=== PATIENT | female | born 1980 | race Caucasian/White ===

== ENCOUNTER → 2017-01-05 | Emergency (ER) | payer OTHER ==
[~2017-01-05] MED LIST: LIDOCAINE 1% 10 ML VIAL INJ ONE; ONDANSETRON ODT 8 MG TAB SL PRN; cefTRIAXone SODIUM 1 GM VIAL IM ONE; methylPREDNISolone SODIUM SUC 125 MG/2 ML VIAL IM ONE
--- NOTE | 2017-01-05 10:49 | ED.PDOC ---
History of Present Illness - General Chief Complaint: Headache Stated Complaint: Right sided headache & earache Time Seen by Provider: 01/05/17 10:33 Source: patient, RN notes reviewed, Vital Signs reviewed Exam Limitations: no limitations - History of Present Illness Initial Comments: Patient reports this morning at 2am she developed a right sided [place]IL[place] with ear pain , dizziness and nausea. She had a similar, brief episode 5 days ago that resolved on its own. Denies any recent URI symptoms. No numbness, weakness, tingling. No visual or speech changes. Timing/Duration: 24 hours Quality: moderate, constant, pressure Head Injury Location: other - Whole right side of head and jaw Recent Head Trauma: no recent headache/trauma Improving Factors: rest Worsening Factors: movement Associated Symptoms: nausea/vomiting, other - Dizziness/vertigo Allergies/Adverse Reactions: Allergies NO KNOWN ALLERGY Allergy (Unverified 06/13/15 22:17) Home Medications: Ambulatory Orders Fluoxetine HCl [Prozac] 60 mg PO DAILY 12/22/13 Phenytoin Sodium Cap [Dilantin Cap] 100 mg PO TID 12/22/13 Ondansetron [Zofran Odt] 4 mg PO Q4HR PRN #20 tab 01/05/17 Review of Systems - Review of Systems Constitutional: Denies: chills, diaphoresis, fever, malaise, weakness EENTM: States: see HPI, ear pain. Denies: eye pain, blurred vision, double vision, ear discharge, nose pain, nose congestion, throat pain, throat swelling , mouth pain, mouth swelling Respiratory: States: no symptoms reported. Denies: cough, short of breath Cardiology: States: no symptoms reported. Denies: chest pain, palpitations, syncope Gastrointestinal/Abdominal: States: see HPI, nausea. Denies: abdominal pain, diarrhea, vomiting Musculoskeletal: States: no symptoms reported. Denies: back pain, muscle pain, muscle stiffness Skin: States: no symptoms reported Neurological: States: headache. Denies: numbness, paresthesia, pre-existing deficit, seizure, tingling, tremors, weakness Endocrine: States: no symptoms reported Hematologic/Lymphatic: States: no symptoms reported Past Medical History (General) - Patient Medical History Hx Seizures: Yes Hx Stroke: No Hx Dementia: No Hx Asthma: Yes Hx of COPD: No Hx Cardiac Disorders: No Hx Congestive Heart Failure: No Hx Pacemaker: No Hx Hypertension: No Hx Thyroid Disease: No Hx Diabetes: No Hx Gastroesophageal Reflux: No Hx Renal Disease: No Hx Cancer: No Hx of HIV: No Hx Hepatitis C: No Hx MRSA: Yes MRSA Source:: Wound - Vaccination History Hx Tetanus, Diphtheria Vaccination: No Hx Influenza Vaccination: No Hx Pneumococcal Vaccination: No - Social History Hx Tobacco Use: Yes Hx Chewing Tobacco Use: No Hx Alcohol Use: Yes Hx Substance Use: No Hx Substance Use Treatment: No Hx Depression: Yes Hx Physical Abuse: No Hx Emotional Abuse: No Hx Suspected Abuse: No - Female History Hx Last Menstrual Period: 05/26/14 Patient : No Family Medical History - Family History Mother Family History: Unknown Physical Exam - Physical Exam General Appearance: Alert, No apparent distress, Ill Appearing, Unkempt, Well Developed, Well Hydrated, Well Nourished Eyes, Ears, Nose, Throat Exam: PERRL/EOMI, pharynx normal, TM abnormal (R) - TM is erythematous and bulging Neck: non-tender, full range of motion, supple, normal inspection, trachea midline Cardiovascular/Chest: regular rate, rhythm, no edema, no gallop, no JVD, no murmur Respiratory: lungs clear, normal breath sounds, no respiratory distress, no accessory muscle use Extremity: normal range of motion, non-tender, normal inspection, no pedal edema Mental Status: alert, 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 Discussed ear infection, how painful they can be, how they cause vertigo and the importance of gargling warm salt water and taking a good decongestant. Explained that the shot of Rochephin should cover the infection but need to get the ear draining with above measures. Also discussed the possibility of an ear drum rupture and the importance of following up for recheck if that dose occur. Departure - Departure Clinical Impression: Otitis media Time of Disposition: 11:37 Disposition: Discharge to Home or Self Care Condition: Good Departure Forms: ED Discharge - Pt. Copy, Patient Portal Self Enrollment Instructions: Middle Ear Infection Diet: resume usual diet Activity: increase activity as tolerated Prescriptions: Ondansetron [Zofran Odt] 4 mg PO Q4HR PRN #20 tab PRN Reason: Nausea/Vomiting Home Medications: Ambulatory Orders Fluoxetine HCl [Prozac] 60 mg PO DAILY 12/22/13 Phenytoin Sodium Cap [Dilantin Cap] 100 mg PO TID 12/22/13 Ondansetron [Zofran Odt] 4 mg PO Q4HR PRN #20 tab 01/05/17 Additional Instructions: Gargle warm salt water every 2 hours OTC Robitussin or Mucinex as directed.
[2017-01-05 11:48] VITALS: BP 142/87; TEMP 99; O2SAT 95
== END | disposition home or self-care (01) ==
LOC: ER 10:29
DX: H66.90 Otitis media, unspecified, unspecified ear (principal); J45.909 Unspecified asthma, uncomplicated; Z87.891 Personal history of nicotine dependence; Z86.14 Personal history of Methicillin resistant Staphylococcus aureus infection

== ENCOUNTER 2017-01-30 11:23 | Emergency (ER) | payer OTHER ==
--- NOTE | 2017-01-30 12:11 | ED.PDOC ---
History of Present Illness - General Chief Complaint: General Stated Complaint: (R) ear discomfort, fever, headache Time Seen by Provider: 01/30/17 12:04 Source: patient Exam Limitations: no limitations - History of Present Illness Initial Comments: She stated she started having cough non productive and nasal congestion for 6 days,her daughter got ill first,no foreign travel no fever no chills.With dull frontal headache. Timing/Duration: other - 6 days Improving Factors: nothing Worsening Factors: nothing Associated Symptoms: cough, headaches, loss of appetite Allergies/Adverse Reactions: Allergies Coconut Fatty Acids Allergy (Verified 01/30/17 11:39) Anaphylaxis Causes throat and tongue to swell Home Medications: Ambulatory Orders Fluoxetine HCl [Prozac] 60 mg PO DAILY 12/22/13 Phenytoin Sodium Cap [Dilantin Cap] 100 mg PO TID 12/22/13 Albuterol Inhaler [Ventolin Hfa Inhaler] 108 mcg IN Q4HR PRN #1 inh 01/30/17 Amoxicillin [Amoxil] 1,000 mg PO BID #40 cap 01/30/17 Benzonatate Perles [Tessalon Perles] 200 mg PO BID #30 cap 01/30/17 predniSONE [Prednisone] 10 mg PO BID #14 tab 01/30/17 Review of Systems - Review of Systems Constitutional: States: no symptoms reported EENTM: States: nose congestion Respiratory: States: cough Cardiology: States: no symptoms reported Gastrointestinal/Abdominal: States: no symptoms reported Genitourinary: States: no symptoms reported Musculoskeletal: States: no symptoms reported Skin: States: no symptoms reported Neurological: States: seizure - non compliant with medications Endocrine: States: no symptoms reported Hematologic/Lymphatic: States: no symptoms reported Past Medical History (General) - Patient Medical History Hx Seizures: Yes Hx Stroke: No Hx Dementia: No Hx Asthma: Yes Hx of COPD: No Hx Cardiac Disorders: No Hx Congestive Heart Failure: No Hx Pacemaker: No Hx Hypertension: No Hx Thyroid Disease: No Hx Diabetes: No Hx Gastroesophageal Reflux: No Hx Renal Disease: No Hx Cancer: No Hx of HIV: No Hx Hepatitis C: No Hx MRSA: Yes MRSA Source:: Wound - Vaccination History Hx Tetanus, Diphtheria Vaccination: No Hx Influenza Vaccination: No Hx Pneumococcal Vaccination: No - Social History Hx Tobacco Use: Yes Hx Chewing Tobacco Use: No Hx Alcohol Use: Yes Hx Substance Use: No Hx Substance Use Treatment: No Hx Depression: Yes Hx Physical Abuse: No Hx Emotional Abuse: No Hx Suspected Abuse: No - Female History Patient is a Female of Child Bearing Age (10 -59 yrs old): Yes Hx Last Menstrual Period: 05/26/14 Patient : No Family Medical History - Family History Mother Family History: Unknown Living Status: Hx Family Hypertension: Yes Hx Family Stroke: Yes Hx Family Diabetes: Yes Hx Family Cancer: Yes - lung,breast-grandma Physical Exam - Physical Exam General Appearance: Alert, Comfortable, No apparent distress Eye Exam: bilateral normal Ears, Nose, Throat: hearing grossly normal, normal ENT inspection, normal pharynx, nasal congestion Neck: non-tender, full range of motion, supple Respiratory: chest non-tender, lungs clear, normal breath sounds, no respiratory distress Cardiovascular/Chest: normal peripheral pulses, regular rate, rhythm, no edema, no gallop, no JVD, no murmur Gastrointestinal/Abdominal: normal bowel sounds, non tender, soft, no organomegaly Back Exam: normal inspection, no CVA tenderness, no vertebral tenderness Extremity: normal range of motion, non-tender, normal inspection Neurologic: no motor/sensory deficits, alert, normal mood/affect, oriented x 3 Skin Exam: normal color, warm/dry Progress - EKG/XRAY/CT XRAY: chest - no acute findings Departure - Departure Clinical Impression: Reactive airway disease that is not asthma Acute sinusitis, unspecified Qualifiers: Sinusitis location: unspecified location Recurrence: not specified Qualifier Code: (J01.90) Acute sinusitis, unspecified Time of Disposition: 13:24 Disposition: Discharge to Home or Self Care Condition: Good Departure Forms: ED Discharge - Pt. Copy, Patient Portal Self Enrollment Instructions: How to Quit Smoking, Reasons to Quit Smoking, All Forms of Smoking Are Bad for You, Tips to Help You Stop Smoking Prescriptions: Albuterol Inhaler [Ventolin Hfa Inhaler] 108 mcg IN Q4HR PRN #1 inh PRN Reason: Cough Amoxicillin [Amoxil] 1,000 mg PO BID #40 cap predniSONE [Prednisone] 10 mg PO BID #14 tab Benzonatate Perles [Tessalon Perles] 200 mg PO BID #30 cap Home Medications: Ambulatory Orders Fluoxetine HCl [Prozac] 60 mg PO DAILY 12/22/13 Phenytoin Sodium Cap [Dilantin Cap] 100 mg PO TID 12/22/13 Albuterol Inhaler [Ventolin Hfa Inhaler] 108 mcg IN Q4HR PRN #1 inh 01/30/17 Amoxicillin [Amoxil] 1,000 mg PO BID #40 cap 01/30/17 Benzonatate Perles [Tessalon Perles] 200 mg PO BID #30 cap 01/30/17 predniSONE [Prednisone] 10 mg PO BID #14 tab 01/30/17 Additional Instructions: NEED TO FOOLLOW UP WITH PRIMARY MD FOR REFILL OF ANTEPILEPSY MEDICATIONS
--- NOTE | 2017-01-30 12:59 | RAD ---
EXAM DESCRIPTION: Chest,1 View CLINICAL HISTORY: cough COMPARISON: December 22, 2013 IMPRESSION: Single AP portable upright view of the chest shows cardiac silhouette and pulmonary vasculature to be within normal limits. Lungs are normally aerated and clear. No obvious pleural effusion or pneumothorax is seen. Electronically signed by: Chas Silva MD 01/30/2017 12:59 PM [employer]
[2017-01-30 13:44] VITALS: BP 148/80; TEMP 98; O2SAT 95
== END 2017-01-30 13:30 | disposition home or self-care (01) ==
LOC: ER 11:23
DX: J01.90 Acute sinusitis, unspecified (principal); J98.9 Respiratory disorder, unspecified; Z79.899 Other long term (current) drug therapy; Z91.018 Allergy to other foods

== ENCOUNTER 2018-01-01 06:05 | Emergency (ER) | payer SELFPAY ==
[2018-01-01 06:18] VITALS: BP 119/88; TEMP 100.9; O2SAT 96
[2018-01-01] MEDS ORDERED: valACYclovir 500 MG TAB PO ONE (06:27)
[2018-01-01] MEDS ORDERED: SULFA/TRIMETH 800/160 (DS) TAB 1 EA TAB PO ONE (06:27)
--- NOTE | 2018-01-01 06:30 | ED.PDOC ---
History of Present Illness - General Chief Complaint: Fever Stated Complaint: fever, fever blisters Time Seen by Provider: 01/01/18 06:22 Exam Limitations: no limitations - History of Present Illness Initial Comments: the patient is a 37-year-old female presenting to the emergency room secondary to intermittent fevers for the last couple of weeks as well as a cough for the last few days. The patient has had a significant fever blister develop over the last 24-48 hrs. with significant surrounding erythema and also what is likely reactive lymphadenopathy below her right jawline. There is the possibility this may be a swollen submandibular gland. no parotid gland swelling. Timing/Duration: unsure Severity: moderate Improving Factors: nothing Worsening Factors: nothing Associated Symptoms: cough, fever/chills, loss of appetite, malaise Allergies/Adverse Reactions: Allergies Coconut Fatty Acids Allergy (Verified 01/30/17 11:39) Anaphylaxis Causes throat and tongue to swell Home Medications: Ambulatory Orders Fluoxetine HCl [Prozac] 60 mg PO DAILY 12/22/13 Phenytoin Sodium Cap Extended [Dilantin Cap] 100 mg PO TID 12/22/13 Albuterol Inhaler [Ventolin Hfa Inhaler] 108 mcg IN Q4HR PRN #1 inh 01/30/17 Amoxicillin [Amoxil] 1,000 mg PO BID #40 cap 01/30/17 Benzonatate Perles [Tessalon Perles] 200 mg PO BID #30 cap 01/30/17 predniSONE [Prednisone] 10 mg PO BID #14 tab 01/30/17 Amoxicillin & Pot Clavulanate [Augmentin Tab] 875 mg PO BID #20 tab 01/01/18 Docosanol [Abreva] 10 % TOP TID #1 tube 01/01/18 Valacyclovir HCl [Valtrex] 2 gm PO BID #6 tab 01/01/18 Review of Systems - Review of Systems Constitutional: States: fever, malaise EENTM: States: see HPI, nose congestion Respiratory: States: cough Cardiology: States: no symptoms reported Gastrointestinal/Abdominal: States: no symptoms reported Genitourinary: States: no symptoms reported Musculoskeletal: States: no symptoms reported - with the exception of generalized body aches Skin: States: no symptoms reported Neurological: States: no symptoms reported, headache Endocrine: States: no symptoms reported All other Systems: No Change from Baseline Past Medical History (General) - Patient Medical History Hx Seizures: Yes Hx Stroke: No Hx Dementia: No Hx Asthma: Yes Hx of COPD: No Hx Cardiac Disorders: No Hx Congestive Heart Failure: No Hx Pacemaker: No Hx Hypertension: No Hx Thyroid Disease: No Hx Diabetes: No Hx Gastroesophageal Reflux: No Hx Renal Disease: No Hx Cancer: No Hx of HIV: No Hx Hepatitis C: No Hx MRSA: Yes MRSA Source:: Wound - Vaccination History Hx Tetanus, Diphtheria Vaccination: No Hx Influenza Vaccination: No Hx Pneumococcal Vaccination: No - Social History Hx Tobacco Use: Yes Hx Chewing Tobacco Use: No Hx Alcohol Use: Yes Hx Substance Use: No Hx Substance Use Treatment: No Hx Depression: Yes Hx Physical Abuse: No Hx Emotional Abuse: No Hx Suspected Abuse: No - Female History Hx Last Menstrual Period: 05/26/14 Patient : No Family Medical History - Family History Mother Family History: Unknown Living Status: Hx Family Hypertension: Yes Hx Family Stroke: Yes Hx Family Diabetes: Yes Hx Family Cancer: Yes - lung,breast-grandma Physical Exam - Physical Exam General Appearance: Alert, No apparent distress Eye Exam: bilateral normal Ears, Nose, Throat: hearing grossly normal, nasal congestion, pharyngeal erythema, other - fever blister to her upper right lip with significant surrounding erythema Neck: other - significant lymphadenopathy versus submandibular swelling under the right jaw line. Tender to palpation. Respiratory: lungs clear, normal breath sounds, no respiratory distress, no accessory muscle use Cardiovascular/Chest: normal peripheral pulses, no edema Peripheral Pulses: radial,right: 2+, radial,left: 2+, dorsalis pedis,right: 2+, dorsalis pedis,left: 2+ Gastrointestinal/Abdominal: normal bowel sounds, non tender, soft Rectal Exam: deferred Back Exam: normal inspection, no CVA tenderness Extremity: normal range of motion, non-tender, normal inspection, no pedal edema , normal capillary refill Neurologic: mailing jogger II-XII nml as tested, alert, normal mood/affect, oriented x 3 Skin Exam: normal color - ee history of present illness Comments: Vital Signs - 24 hr 01/01/18 06:10 Temperature 100.9 F H Pulse Rate [ 111 H monitor] Respiratory 16 Rate Blood Pressure 119/88 [Left Arm] O2 Sat by Pulse 96 Oximetry Progress - Progress Progress: 01/01/18 06:31 the patient is a 37-year-old with an obvious oral HSV infection currently flaring. She will be placed on Valtrex. Additionally the patient is going to be covered for the possibility of overlying bacterial infection, possibly of the submandibular gland, with Augmentin twice daily for 7 days. first doses of each are given here tonight. She needs to follow up with her primary care doctor in 3 days for reevaluation. She obviously needs to return here for any significant worsening. She needs to really push her hydration status. sucking on hard candy and chewing on things like beef jerky can help stimulate saliva production encase this is a submandibular gland infection. She needs to use Motrin and Tylenol as needed to keep her fever control as this may help reduce her symptoms from the HSV very significantly. She can use topical Abreva if she wishes on the fever blisters as well. 01/01/18 06:36 Departure - Departure Clinical Impression: Recurrent herpes labialis, Sialadenitis Upper respiratory infection Qualifiers: URI type: unspecified URI Qualified Code(s): J06.9 - Acute upper respiratory infection, unspecified Disposition: Discharge to Home or Self Care Condition: Fair Departure Forms: ED Discharge - Pt. Copy, Patient Portal Self Enrollment Instructions: DI for Cold Sores Diet: regular diet Activity: increase activity as tolerated Referrals: Margarita Myers NP [Primary Care Provider] - 1-5 Days Prescriptions: Amoxicillin & Pot Clavulanate [Augmentin Tab] 875 mg PO BID #20 tab Docosanol [Abreva] 10 % TOP TID #1 tube Valacyclovir HCl [Valtrex] 2 gm PO BID #6 tab Home Medications: Ambulatory Orders Fluoxetine HCl [Prozac] 60 mg PO DAILY 12/22/13 Phenytoin Sodium Cap Extended [Dilantin Cap] 100 mg PO TID 12/22/13 Albuterol Inhaler [Ventolin Hfa Inhaler] 108 mcg IN Q4HR PRN #1 inh 01/30/17 Amoxicillin [Amoxil] 1,000 mg PO BID #40 cap 01/30/17 Benzonatate Perles [Tessalon Perles] 200 mg PO BID #30 cap 01/30/17 predniSONE [Prednisone] 10 mg PO BID #14 tab 01/30/17 Amoxicillin & Pot Clavulanate [Augmentin Tab] 875 mg PO BID #20 tab 01/01/18 Docosanol [Abreva] 10 % TOP TID #1 tube 01/01/18 Valacyclovir HCl [Valtrex] 2 gm PO BID #6 tab 01/01/18 Additional Instructions: the patient is a 37-year-old with an obvious oral HSV infection currently flaring. She will be placed on Valtrex. Additionally the patient is going to be covered for the possibility of overlying bacterial infection, possibly of the submandibular gland, with Augmentin twice daily for 7 days. first doses of each are given here tonight. She needs to follow up with her primary care doctor in 3 days for reevaluation. She obviously needs to return here for any significant worsening. She needs to really push her hydration status. sucking on hard candy and chewing on things like beef jerky can help stimulate saliva production encase this is a submandibular gland infection. She needs to use Motrin and Tylenol as needed to keep her fever control as this may help reduce her symptoms from the HSV very significantly. She can use topical Abreva if she wishes on the fever blisters as well.
== END 2018-01-01 06:51 | disposition home or self-care (01) ==
LOC: ER 06:05
DX: J06.9 Acute upper respiratory infection, unspecified (principal); K11.20 Sialoadenitis, unspecified; B00.1 Herpesviral vesicular dermatitis; Z87.891 Personal history of nicotine dependence

== ENCOUNTER 2018-05-10 09:03 | Emergency (ER) | payer SELFPAY ==
[2018-05-10 09:28] VITALS: TEMP 99.3
[2018-05-10] MEDS ORDERED: CLINDAMYCIN HCL CAP 150 MG CAP PO ONE (09:32)
[2018-05-10] MEDS ORDERED: HYDROcodone 7.5MG/APAP 325MG 1 EA TAB PO ONE (09:32)
[2018-05-10] MEDS ORDERED: PROMETHAZINE HCL 25 MG TAB PO ONE (09:32)
--- NOTE | 2018-05-10 09:38 | ED.PDOC ---
History of Present Illness - General Chief Complaint: Dental/Mouth Time Seen by Provider: 05/10/18 09:11 Source: patient Exam Limitations: no limitations - History of Present Illness Initial Comments: the patient is a 37-year-old female presenting to the emergency room secondary to pain and nodule formation to the roof of her mouth that started about 3 days ago. She reports low-grade fever at home. She has been having some difficulty eating secondary to pain there. She has had some nausea. No fever blisters or oral ulcers otherwise. She does have very poor dentition.physical exam shows a nodule on the roof of her mouth slightly left of center that has been obviously draining a small amount of pus. It is approximately the size of a nickel. Examination down the nares show no extension into the nasal channels. Timing/Duration: unsure Severity: severe Improving Factors: nothing Worsening Factors: eating Associated Symptoms: denies symptoms Allergies/Adverse Reactions: Allergies Coconut Fatty Acids Allergy (Verified 01/30/17 11:39) Anaphylaxis Causes throat and tongue to swell Home Medications: Ambulatory Orders Fluoxetine HCl [Prozac] 60 mg PO DAILY 12/22/13 Phenytoin Sodium Cap Extended [Dilantin Cap] 100 mg PO TID 12/22/13 Albuterol Inhaler [Ventolin Hfa Inhaler] 108 mcg IN Q4HR PRN #1 inh 01/30/17 Amoxicillin [Amoxil] 1,000 mg PO BID #40 cap 01/30/17 Benzonatate Perles [Tessalon Perles] 200 mg PO BID #30 cap 01/30/17 predniSONE [Prednisone] 10 mg PO BID #14 tab 01/30/17 Amoxicillin & Pot Clavulanate [Augmentin Tab] 875 mg PO BID #20 tab 01/01/18 Docosanol [Abreva] 10 % TOP TID #1 tube 01/01/18 Valacyclovir HCl [Valtrex] 2 gm PO BID #6 tab 01/01/18 Clindamycin HCl 300 mg PO Q8H #20 cap 05/10/18 Tramadol HCl 50 mg PO Q6HRS PRN #30 tab 05/10/18 Review of Systems - Review of Systems Constitutional: States: fever, malaise EENTM: States: no symptoms reported Respiratory: States: no symptoms reported Cardiology: States: no symptoms reported Gastrointestinal/Abdominal: States: nausea. Denies: constipation, diarrhea, vomiting Genitourinary: States: no symptoms reported Musculoskeletal: States: no symptoms reported Skin: States: no symptoms reported Neurological: States: headache Endocrine: States: no symptoms reported All other Systems: No Change from Baseline Past Medical History (General) - Patient Medical History Hx Seizures: Yes Hx Stroke: No Hx Dementia: No Hx Asthma: Yes Hx of COPD: No Hx Cardiac Disorders: No Hx Congestive Heart Failure: No Hx Pacemaker: No Hx Hypertension: No Hx Thyroid Disease: No Hx Diabetes: No Hx Gastroesophageal Reflux: No Hx Renal Disease: No Hx Cancer: No Hx of HIV: No Hx Hepatitis C: No Hx MRSA: Yes MRSA Source:: Wound Surgical History: other - Vaccination History Hx Tetanus, Diphtheria Vaccination: No Hx Influenza Vaccination: No Hx Pneumococcal Vaccination: No - Social History Hx Tobacco Use: Yes Hx Chewing Tobacco Use: No Hx Alcohol Use: Yes Hx Substance Use: No Hx Substance Use Treatment: No Hx Depression: Yes Hx Physical Abuse: No Hx Emotional Abuse: No Hx Suspected Abuse: No - Female History Hx Last Menstrual Period: 05/26/14 Patient : No Family Medical History - Family History Mother Family History: Unknown Living Status: Hx Family Hypertension: Yes Hx Family Stroke: Yes Hx Family Diabetes: Yes Hx Family Cancer: Yes - lung,breast-grandma Physical Exam - Physical Exam General Appearance: Alert, Anxious Eye Exam: bilateral normal Ears, Nose, Throat: hearing grossly normal, other - see history of present illness Neck: full range of motion, supple Respiratory: lungs clear, normal breath sounds, no respiratory distress, no accessory muscle use Cardiovascular/Chest: normal peripheral pulses, regular rate, rhythm, no edema Peripheral Pulses: radial,right: 2+, radial,left: 2+, dorsalis pedis,right: 2+, dorsalis pedis,left: 2+ Gastrointestinal/Abdominal: non tender, soft Rectal Exam: deferred Back Exam: normal inspection, no CVA tenderness Extremity: non-tender, no pedal edema, no calf tenderness, normal capillary refill 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 After risk and benefits were explained I&D was performed with a #11 blade scalpel making a 1 cm incision into the abscess. Proximally 1-2 cc of pus were drained. The patient tolerated this well and is actually feeling a little better after. The patient is going to be placed on clindamycin 300 mg 3 times daily for the next 7 days as empiric treatment and is going to be written for some tramadol for as needed use for the pain control. She needs to keep herself well hydrated and maintain primarily a liquid diet for the next day or 2. she needs to mouthwash with Listerine 5 or 6 times daily for the next couple of weeks. ER warnings were given for any significant worsening. Blood pressure is elevated here but likely related to pain. This also needs to be followed up with her primary care doctor as an outpatient. Departure - Departure Clinical Impression: Abscess of oral tissue Disposition: Discharge to Home or Self Care Condition: Fair Departure Forms: ED Discharge - Pt. Copy, Patient Portal Self Enrollment Diet: regular diet Activity: increase activity as tolerated Referrals: Margarita Myers NP [Primary Care Provider] - 1-5 Days Prescriptions: Tramadol HCl 50 mg PO Q6HRS PRN #30 tab PRN Reason: Moderate To Severe Pain Clindamycin HCl 300 mg PO Q8H #20 cap Home Medications: Ambulatory Orders Fluoxetine HCl [Prozac] 60 mg PO DAILY 12/22/13 Phenytoin Sodium Cap Extended [Dilantin Cap] 100 mg PO TID 12/22/13 Albuterol Inhaler [Ventolin Hfa Inhaler] 108 mcg IN Q4HR PRN #1 inh 01/30/17 Amoxicillin [Amoxil] 1,000 mg PO BID #40 cap 01/30/17 Benzonatate Perles [Tessalon Perles] 200 mg PO BID #30 cap 01/30/17 predniSONE [Prednisone] 10 mg PO BID #14 tab 01/30/17 Amoxicillin & Pot Clavulanate [Augmentin Tab] 875 mg PO BID #20 tab 01/01/18 Docosanol [Abreva] 10 % TOP TID #1 tube 01/01/18 Valacyclovir HCl [Valtrex] 2 gm PO BID #6 tab 01/01/18 Clindamycin HCl 300 mg PO Q8H #20 cap 05/10/18 Tramadol HCl 50 mg PO Q6HRS PRN #30 tab 05/10/18 Additional Instructions: the patient is a 37-year-old female presenting with a small abscess to the roof of her mouth. After risk and benefits were explained I&D was performed with a #11 blade scalpel making a 1 cm incision into the abscess. Proximally 1-2 cc of pus were drained. The patient tolerated this well and is actually feeling a little better after. The patient is going to be placed on clindamycin 300 mg 3 times daily for the next 7 days as empiric treatment and is going to be written for some tramadol for as needed use for the pain control. She needs to keep herself well hydrated and maintain primarily a liquid diet for the next day or 2. she needs to mouthwash with Listerine 5 or 6 times daily for the next couple of weeks. ER warnings were given for any significant worsening. Blood pressure is elevated here but likely related to pain. This also needs to be followed up with her primary care doctor as an outpatient. Motrin or Aleve can also help with discomfort however it does need to be noted that these can also slightly worsened some high blood pressure in the short-term.
[2018-05-10 09:55] VITALS: BP 176/115; O2SAT 96
== END 2018-05-10 10:05 | disposition home or self-care (01) ==
LOC: ER 09:03
DX: K12.2 Cellulitis and abscess of mouth (principal); F32.9 Major depressive disorder, single episode, unspecified; J45.909 Unspecified asthma, uncomplicated; R56.9 Unspecified convulsions; F17.200 Nicotine dependence, unspecified, uncomplicated; Z79.899 Other long term (current) drug therapy; Z86.14 Personal history of Methicillin resistant Staphylococcus aureus infection

== ENCOUNTER 2019-01-02 17:40 | Emergency (ER) | payer SELFPAY ==
[2019-01-02 18:26] VITALS: TEMP 98.1
--- NOTE | 2019-01-02 18:29 | ED.PDOC ---
History of Present Illness - General Chief Complaint: Bite: Animal/Insect/Human Stated Complaint: Dog bite to L thumb Time Seen by Provider: 01/02/19 17:55 Source: patient Exam Limitations: no limitations - History of Present Illness Initial Comments: the patient's 38-year-old female presenting to the emergency room secondary to a dog bite to her left thumb. She was breaking up a dog fight between her dogs. The smaller dog bit her thumb and she has a one half synovator laceration to the lateral and medial aspect of the left thumb at the level of the interphalangeal joint. She does have some very mild surrounding numbness but no numbness at the tip of the finger. Mechanical function is preserved. Capillary refill is within normal limits. No other significant lacerations. It has been more than 5 years since her last tetanus shot. The wounds were hemostatic at this point. She reports that her dogs have had their shots. This bite has been reported. Timing/Duration: momentarily Severity: mild Improving Factors: nothing Worsening Factors: nothing Associated Symptoms: denies symptoms Allergies/Adverse Reactions: Allergies Coconut Fatty Acids Allergy (Verified 01/02/19 18:13) Anaphylaxis Causes throat and tongue to swell Home Medications: Ambulatory Orders Fluoxetine HCl [Prozac] 60 mg PO DAILY 12/22/13 Phenytoin Sodium Cap Extended [Dilantin Cap] 100 mg PO TID 12/22/13 Albuterol Inhaler [Ventolin Hfa Inhaler] 108 mcg IN Q4HR PRN #1 inh 01/30/17 Amoxicillin & Pot Clavulanate [Augmentin Tab] 875 mg PO BID #10 tab 01/02/19 Review of Systems - Review of Systems Constitutional: States: no symptoms reported EENTM: States: no symptoms reported Respiratory: States: no symptoms reported Cardiology: States: no symptoms reported Gastrointestinal/Abdominal: States: no symptoms reported Genitourinary: States: no symptoms reported Musculoskeletal: States: no symptoms reported Skin: States: see HPI Neurological: States: no symptoms reported Endocrine: States: no symptoms reported All other Systems: No Change from Baseline Past Medical History (General) - Patient Medical History Hx Seizures: Yes Hx Stroke: No Hx Dementia: No Hx Asthma: Yes Hx of COPD: No Hx Cardiac Disorders: No Hx Congestive Heart Failure: No Hx Pacemaker: No Hx Hypertension: No Hx Thyroid Disease: No Hx Diabetes: No Hx Gastroesophageal Reflux: No Hx Renal Disease: No Hx Cancer: No Hx of HIV: No Hx Hepatitis C: No Hx MRSA: Yes MRSA Source:: Wound - Vaccination History Hx Tetanus, Diphtheria Vaccination: No Hx Influenza Vaccination: No Hx Pneumococcal Vaccination: No - Social History Hx Tobacco Use: Yes Hx Chewing Tobacco Use: No Hx Alcohol Use: Yes Hx Substance Use: No Hx Substance Use Treatment: No Hx Depression: Yes Hx Physical Abuse: No Hx Emotional Abuse: No Hx Suspected Abuse: No - Female History Patient is a Female of Child Bearing Age (10 -59 yrs old): Yes Hx Last Menstrual Period: 05/26/14 Patient : No Family Medical History - Family History Mother Family History: Unknown Living Status: Hx Family Hypertension: Yes Hx Family Stroke: Yes Hx Family Diabetes: Yes Hx Family Cancer: Yes - lung,breast-grandma Physical Exam - Physical Exam General Appearance: Alert, Comfortable, No apparent distress Eye Exam: bilateral normal Ears, Nose, Throat: hearing grossly normal Neck: full range of motion Respiratory: no respiratory distress, no accessory muscle use Cardiovascular/Chest: normal peripheral pulses, no edema Peripheral Pulses: radial,right: 2+, radial,left: 2+ Gastrointestinal/Abdominal: other - obese Rectal Exam: deferred Extremity: normal range of motion, normal capillary refill, other - see history of present illness 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 2 lacerations are present. Lacerations have been irrigated with 5 minutes of running water. The patient is being dosed with Augmentin and will be placed on this twice daily for the next 5 days for infection prophylaxis. She is also receiving a tetanus shot. Wounds were Steri-Stripped closed. She does need to keep these clean. She does need to wear gloves when at work. Strips will fall off on their own, do not pull them off. Monitor for any evidence of infection. ER warnings were given. Keep routine follow-up with primary care doctor. Bite has been reported. this is a low risk bite as the dogs are her own and she reports they have had their shots. Departure - Departure Clinical Impression: Bite wound Disposition: Discharge to Home or Self Care Condition: Fair Departure Forms: ED Discharge - Pt. Copy, Patient Portal Self Enrollment Diet: regular diet Activity: increase activity as tolerated Referrals: Margarita Myers NP [Primary Care Provider] - 1-2 Weeks Prescriptions: Amoxicillin & Pot Clavulanate [Augmentin Tab] 875 mg PO BID #10 tab Home Medications: Ambulatory Orders Fluoxetine HCl [Prozac] 60 mg PO DAILY 12/22/13 Phenytoin Sodium Cap Extended [Dilantin Cap] 100 mg PO TID 12/22/13 Albuterol Inhaler [Ventolin Hfa Inhaler] 108 mcg IN Q4HR PRN #1 inh 01/30/17 Amoxicillin & Pot Clavulanate [Augmentin Tab] 875 mg PO BID #10 tab 01/02/19 Additional Instructions: the patient is a 38-year-old female presenting to the emergency room secondary to a dog bite to her thumb of her left hand. 2 lacerations are present. Lacerations have been irrigated with 5 minutes of running water. The patient is being dosed with Augmentin and will be placed on this twice daily for the next 5 days for infection prophylaxis. She is also receiving a tetanus shot. Wounds were Steri-Stripped closed. She does need to keep these clean. She does need to wear gloves when at work. Strips will fall off on their own, do not pull them off. Monitor for any evidence of infection. ER warnings were given. Keep routine follow-up with primary care doctor. Bite has been reported. this is a low risk bite as the dogs are her own and she reports they have had their shots.
[2019-01-02] MEDS: TETANUS,DIPHTHERIA,PERTUSSIS 1 EA SYG IM ONE (18:30)
[2019-01-02] MEDS: AMOXICILLIN & POT CLAVULANATE 875 MG TAB PO ONE (18:30)
[2019-01-02 18:46] VITALS: BP 174/96; O2SAT 95
== END 2019-01-02 18:35 | disposition home or self-care (01) ==
LOC: ER 17:40
DX: S61.052A Open bite of left thumb without damage to nail, initial encounter (principal); J45.909 Unspecified asthma, uncomplicated; F32.9 Major depressive disorder, single episode, unspecified; W54.0XXA Bitten by dog, initial encounter; Z23 Encounter for immunization; Z87.891 Personal history of nicotine dependence; Y92.9 Unspecified place or not applicable

== ENCOUNTER 2019-05-03 17:05 | Emergency (ER) | payer SELFPAY ==
[2019-05-03] MEDS ORDERED: cefTRIAXone SODIUM 1 GM VIAL IM ONE (17:22)
[2019-05-03] MEDS ORDERED: LIDOCAINE 1% 10 ML VIAL INJ ONE (17:31)
--- NOTE | 2019-05-03 17:38 | ED.PDOC ---
History of Present Illness - General Chief Complaint: Dental/Mouth Stated Complaint: Abcess in the roof of mouth Time Seen by Provider: 05/03/19 17:06 Source: patient Exam Limitations: no limitations - History of Present Illness Initial Comments: the patient's a 38-year-old female presenting to the emergency room secondary to abscess formation in the roof of her mouth. She has had this problem in the past. There is about a nickel-sized abscess to the anterior left palate. She reports this is been getting worse over the last month. She does have very poor dentition. Timing/Duration: constant Severity: moderate Improving Factors: nothing Worsening Factors: nothing Associated Symptoms: denies symptoms Allergies/Adverse Reactions: Allergies Coconut Fatty Acids Allergy (Verified 01/02/19 18:13) Anaphylaxis Causes throat and tongue to swell Bee Venom Adverse Reaction (Verified 05/03/19 17:26) Home Medications: Ambulatory Orders Albuterol Inhaler [Ventolin Hfa Inhaler] 108 mcg IN Q4HR PRN #1 inh 01/30/17 Cephalexin Monohydrate [Keflex] 500 mg PO Q8H #30 cap 05/03/19 Review of Systems - Review of Systems Constitutional: States: no symptoms reported EENTM: States: see HPI Respiratory: States: no symptoms reported Cardiology: States: no symptoms reported Gastrointestinal/Abdominal: States: no symptoms reported Genitourinary: States: no symptoms reported Musculoskeletal: States: no symptoms reported Skin: States: no symptoms reported Neurological: States: no symptoms reported Endocrine: States: no symptoms reported All other Systems: No Change from Baseline Past Medical History (General) - Patient Medical History Hx Seizures: Yes Hx Stroke: No Hx Dementia: No Hx Asthma: Yes Hx of COPD: No Hx Cardiac Disorders: No Hx Congestive Heart Failure: No Hx Pacemaker: No Hx Hypertension: No Hx Thyroid Disease: No Hx Diabetes: No Hx Gastroesophageal Reflux: No Hx Renal Disease: No Hx Cancer: No Hx of HIV: No Hx Hepatitis C: No Hx MRSA: Yes MRSA Source:: Wound Surgical History: other - Vaccination History Hx Tetanus, Diphtheria Vaccination: Yes Hx Influenza Vaccination: No Hx Pneumococcal Vaccination: No - Social History Hx Tobacco Use: Yes Hx Chewing Tobacco Use: No Hx Alcohol Use: Yes Hx Substance Use: No Hx Substance Use Treatment: No Hx Depression: Yes Hx Physical Abuse: No Hx Emotional Abuse: No Hx Suspected Abuse: No - Female History Patient is a Female of Child Bearing Age (10 -59 yrs old): Yes Hx Last Menstrual Period: 05/26/14 Patient : No - Denies Family Medical History - Family History Mother Family History: Unknown Living Status: Hx Family Hypertension: Yes Hx Family Stroke: Yes Hx Family Diabetes: Yes Hx Family Cancer: Yes - lung,breast-grandma Physical Exam - Physical Exam General Appearance: Alert, Comfortable, No apparent distress Eye Exam: bilateral normal Ears, Nose, Throat: hearing grossly normal, other - see history of present illness Neck: full range of motion, supple Respiratory: no respiratory distress, no accessory muscle use Cardiovascular/Chest: normal peripheral pulses, no edema, other - regular rate Peripheral Pulses: radial,right: 2+, radial,left: 2+ Gastrointestinal/Abdominal: other - morbidly obese Rectal Exam: deferred Extremity: non-tender, normal inspection, no pedal edema, normal capillary r efill 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 Xylocaine without epinephrine 1 cc were used for local anesthetic. A 15 blade scalpel was used to make a 1 cm incision over the roof of the abscess. The drainage was obtained. The patient refused to let me breakup any septations with a cotton-tip swab. Drainage is approximately 2 cc. Estimated blood loss less than 1 cc. The patient is a 38-year-old female presenting to emergency room secondary to an abscess in the roof of her mouth. I&D was performed. The patient was given a dose of Rocephin here and will be placed on Keflex for the next week as an outpatient. She does need to see a dentist for her very poor dentition. ER warnings were given for any worsening. Keep routine follow up with primary care doctor otherwise. Departure - Departure Clinical Impression: Abscess of oral space Disposition: Discharge to Home or Self Care Condition: Fair Departure Forms: ED Discharge - Pt. Copy, Patient Portal Self Enrollment Diet: regular diet Activity: increase activity as tolerated Referrals: Margarita Myers, GABRIELE [Primary Care Provider] - 1-2 Weeks Prescriptions: Cephalexin Monohydrate [Keflex] 500 mg PO Q8H #30 cap Home Medications: Ambulatory Orders Albuterol Inhaler [Ventolin Hfa Inhaler] 108 mcg IN Q4HR PRN #1 inh 01/30/17 Cephalexin Monohydrate [Keflex] 500 mg PO Q8H #30 cap 05/03/19 Additional Instructions: The patient is a 38-year-old female presenting to emergency room secondary to an abscess in the roof of her mouth. I&D was performed. The patient was given a dose of Rocephin here and will be placed on Keflex for the next week as an outpatient. She does need to see a dentist for her very poor dentition. ER warnings were given for any worsening. Keep routine follow up with primary care doctor otherwise.
[2019-05-03 18:48] VITALS: BP 157/98; TEMP 98.2; O2SAT 100
== END 2019-05-03 18:34 | disposition home or self-care (01) ==
LOC: ER 17:05
DX: K12.2 Cellulitis and abscess of mouth (principal); F32.9 Major depressive disorder, single episode, unspecified; R56.9 Unspecified convulsions; J45.909 Unspecified asthma, uncomplicated; Z86.14 Personal history of Methicillin resistant Staphylococcus aureus infection; Z87.891 Personal history of nicotine dependence

== ENCOUNTER → 2019-10-15 | Outpatient (CLI) | payer OTHER ==
--- NOTE | 2019-10-16 21:00 | MAM ---
EXAM DESCRIPTION: Diagnostic Mammo,Bilateral: Digital Mammography CLINICAL HISTORY: 39 yearsFemaleLEFT BREAST PAIN AND LEFT BREAST NIPPLE DISCHARGE . No personal history of breast cancer. Remote family history of breast cancer. Menarche age 10. Childbirth age 19. Premenopausal. No HRT. Prior left breast biopsy.. Lifetime risk of developing breast cancer (Tyrer-Cuzick model) percentage is 10.6. COMPARISON: 2-D digital diagnostic bilateral mammography and diagnostic breast ultrasound 24 June 2015.. TECHNIQUE: Bilateral LM, CC, and MLO projection full-field images, digital mammographic tomosynthesis technique. Bilateral 2-D digital full-field MLO images:. LM, CC, and MLO projections. CAD not utilized. FINDINGS: The breast parenchymal density pattern is: Heterogeneously dense breast tissue, which may obscure small masses. No skin thickening or nipple retraction small bilateral solitary microcalcifications. No new focal, stellate mass or density, focal asymmetry , and no suspicious microcalcifications laterally. Stable mammograms compared to prior study, taking into account differences in mammographic technique IMPRESSION: Benign exam. BIRAD CATEGORY: 2 BENIGN FINDINGS. RECOMMENDATIONS: FOLLOW UP: Routine digital bilateral mammographic screening, one year interval from September 2019. Written communication explaining the IMPRESSION and follow-up, will be mailed to the patient and referring health care provider. According to the [employer], yearly mammograms are recommended starting at age 40 and continuing as long as a woman is in good health. Any breast change noted on a breast self-exam should be reported promptly to the patient's healthcare provider. Breast MRI is recommended for women with an approximately 20-25% or greater lifetime risk of breast cancer, including women with a strong family history of breast or ovarian cancer and women who have been treated for Hodgkin's disease. A negative mammographic report should not delay tissue diagnosis in patients with significant clinical history or physical findings. Extremely dense breast tissue limits the sensitivity of digital mammography. Electronically signed by: Magan Erickson MD 10/16/2019 8:59 PM [facility]
== END | disposition home or self-care (01) ==
LOC: MAMMO 09:03
PROVIDERS: ATTEND Family Medicine
DX: N64.4 Mastodynia (principal); N64.52 Nipple discharge

== ENCOUNTER 2020-06-04 06:30 | Emergency (ER) | payer OTHER ==
[2020-06-04 07:06] VITALS: TEMP 97.9; O2SAT 98
--- NOTE | 2020-06-04 07:28 | ED.PDOC ---
History of Present Illness - General Chief Complaint: General Stated Complaint: TOOTH ACHE AND LEFT BREAST TENDERNESS Time Seen by Provider: 06/04/20 07:16 Source: patient Exam Limitations: no limitations - History of Present Illness Initial Comments: The patient is a 39-year-old female presented emergency room secondary to pain in the left lower molar where a tooth is fractured as well as pain in the left breast, just behind the nipple at approximately 3:00. The patient has had a mild mastitis there in the past. Symptoms were both present for 3 days. No obvious abscess formation at either site at this point. No evidence of sepsis. Is hurting. 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 The fracture quite a while. No fever. Timing/Duration: other - 3 to 4 days Severity: moderate Improving Factors: nothing Worsening Factors: eating Associated Symptoms: denies symptoms Allergies/Adverse Reactions: Allergies Coconut Fatty Acids Allergy (Verified 01/02/19 18:13) Anaphylaxis Causes throat and tongue to swell Bee Venom Adverse Reaction (Verified 05/03/19 17:26) Home Medications: Ambulatory Orders Albuterol Inhaler [Ventolin Hfa Inhaler] 108 mcg IN Q4HR PRN #1 inh 01/30/17 Cephalexin Monohydrate [Keflex] 500 mg PO Q8H #30 cap 05/03/19 Pmwzymoquocxh-Fhzj-Umpxrxdfbp [Fioricet] 1 ea PO Q8H PRN #21 tab 06/04/20 Clindamycin HCl 300 mg PO Q8HR #30 cap 06/04/20 Review of Systems - Review of Systems Constitutional: States: no symptoms reported EENTM: States: see HPI Respiratory: States: no symptoms reported Cardiology: States: see HPI Gastrointestinal/Abdominal: States: no symptoms reported Genitourinary: States: no symptoms reported Musculoskeletal: States: no symptoms reported Skin: States: see HPI Neurological: States: no symptoms reported Endocrine: States: no symptoms reported All other Systems: No Change from Baseline Past Medical History (General) - Patient Medical History Hx Seizures: No Hx Stroke: No Hx Dementia: No Hx Asthma: Yes Hx of COPD: No Hx Cardiac Disorders: No Hx Congestive Heart Failure: No Hx Pacemaker: No Hx Hypertension: No Hx Thyroid Disease: No Hx Diabetes: No Hx Gastroesophageal Reflux: No Hx Renal Disease: No Hx Cancer: No Hx of HIV: No Hx Hepatitis C: No Hx MRSA: Yes MRSA Source:: Skin Surgical History: other - Vaccination History Hx Tetanus, Diphtheria Vaccination: Yes Hx Influenza Vaccination: No Hx Pneumococcal Vaccination: No - Social History Hx Tobacco Use: Yes Hx Chewing Tobacco Use: No Hx Alcohol Use: Yes Hx Substance Use: No Hx Substance Use Treatment: No Hx Depression: Yes Feels Threatened In Home Enviroment: No Feels Threatened In a Relationship: No Hx Physical Abuse: No Hx Emotional Abuse: No Hx Suspected Abuse: No - Female History Patient is a Female of Child Bearing Age (10 -59 yrs old): Yes Hx Last Menstrual Period: 05/26/14 Patient : No - Triage Comment ED Triage Comment: The patient was alert and oriented times 4 and complained of pain in her left lower jaw from a broken tooth. She also had noted pain in her left breast and complained of swelling of the breast with drainage from the nipple. Family Medical History - Family History Mother Family History: Unknown Living Status: Hx Family Hypertension: Yes Hx Family Stroke: Yes Hx Family Diabetes: Yes Hx Family Cancer: Yes - lung,breast-grandma Physical Exam - Physical Exam General Appearance: Agitated, Alert, Comfortable, No apparent distress Eye Exam: bilateral normal Ears, Nose, Throat: hearing grossly normal, other - Poor dentition. No obvious abscess formation. Neck: full range of motion, supple Respiratory: no respiratory distress, no accessory muscle use Cardiovascular/Chest: normal peripheral pulses, no edema Peripheral Pulses: radial,right: 2+, radial,left: 2+ Gastrointestinal/Abdominal: non tender - Obese, soft Rectal Exam: deferred Back Exam: no CVA tenderness Extremity: normal range of motion, no pedal edema, normal capillary refill Neurologic: memorial mason II-XII nml as tested, alert, normal mood/affect, oriented x 3 Skin Exam: other - See history of present illness. No significant erythema of the left breast. No drainage. Comments: Vital Signs - 24 hr 06/04/20 06:43 Temperature 97.9 F Pulse Rate [ 76 Pulse Ox] Respiratory 18 Rate Blood Pressure 171/102 [Left Arm] O2 Sat by Pulse 98 Oximetry Progress - Progress Progress: 06/04/20 07:29 The patient is a 39-year-old female presented emergency room secondary to a infected dental fracture site. The patient does need to see a dentist. She also has what appears to be a very early mastitis on the left. No evidence of any abscess formation to drain at this point. She does not use warm compresses. Patient has had biopsies at the site of the past showing apparently no concerning pathology according to her. The patiently placed on clindamycin for both problems above as well as a small amount of Fioricet for pain control. She does need to continue to take oral anti-inflammatory such as Motrin or Aleve to help reduce pain as well. Keep well-hydrated. Take medications with food to prevent stomach upset. Keep follow-up with primary care doctor. ER warnings are given. [email or web address] Departure - Departure Clinical Impression: Mastitis, Infected dental caries Disposition: Discharge to Home or Self Care Condition: Fair Departure Forms: ED Discharge - Pt. Copy, Patient Portal Self Enrollment Instructions: Tooth Decay, Adult, Mastitis (DC) Diet: regular diet Activity: increase activity as tolerated Referrals: Anette Alatorre FNP [Primary Care Provider] - 1-2 Weeks Prescriptions: Clindamycin HCl 300 mg PO Q8HR #30 cap Cdotolfeugtod-Wdxb-Nlmjfsefid [Fioricet] 1 ea PO Q8H PRN #21 tab PRN Reason: Pain Home Medications: Ambulatory Orders Albuterol Inhaler [Ventolin Hfa Inhaler] 108 mcg IN Q4HR PRN #1 inh 01/30/17 Cephalexin Monohydrate [Keflex] 500 mg PO Q8H #30 cap 05/03/19 Jhcvrdsoskuxq-Whjm-Urblmwhrjs [Fioricet] 1 ea PO Q8H PRN #21 tab 06/04/20 Clindamycin HCl 300 mg PO Q8HR #30 cap 06/04/20 Additional Instructions: The patient is a 39-year-old female presented emergency room secondary to a infected dental fracture site. The patient does need to see a dentist. She also has what appears to be a very early mastitis on the left. No evidence of any abscess formation to drain at this point. She does not use warm compresses. Patient has had biopsies at the site of the past showing apparently no concerning pathology according to her. The patiently placed on clindamycin for both problems above as well as a small amount of Fioricet for pain control. She does need to continue to take oral anti-inflammatory such as Motrin or Aleve to help reduce pain as well. Keep well-hydrated. Take medications with food to prevent stomach upset. Keep follow-up with primary care doctor. ER warnings are given.
[2020-06-04 07:54] VITALS: BP 160/100
== END 2020-06-04 07:51 | disposition home or self-care (01) ==
LOC: ER 06:30
DX: N61.0 Mastitis without abscess (principal); K04.7 Periapical abscess without sinus; K02.9 Dental caries, unspecified; S02.5XXA Fracture of tooth (traumatic), initial encounter for closed fracture; F32.9 Major depressive disorder, single episode, unspecified; J45.909 Unspecified asthma, uncomplicated; Z87.891 Personal history of nicotine dependence; X58.XXXA Exposure to other specified factors, initial encounter; Y92.9 Unspecified place or not applicable

== ENCOUNTER → 2020-06-15 | Outpatient (CLI) | payer OTHER ==
--- NOTE | 2020-06-16 16:17 | US ---
EXAM DESCRIPTION: Breast,Left: Ultrasound CLINICAL HISTORY: 39 yearsFemalePAIN OF LEFT BREAST region of redness and firmness is probable medial to the left nipple. Patient is taking antibiotics and abnormal area is shrinking. Remote family history of breast cancer. Menarche age 10. Childbirth age 19. Premenopausal. Prior left breast biopsy. No HRT. Lifetime risk of developing breast cancer (Tyrer-Cuzick model)(%): 10.6. COMPARISON: Bilateral diagnostic digital breast tomosynthesis September 2019. TECHNIQUE: Transcutaneous scanning of the left breast utilizing briggs-scale and Doppler modes. Scanning performed by the ceramics teacher ; observation by Dr. Erickson. FINDINGS: The breast parenchymal density pattern is: Heterogeneously dense breast tissue, which may obscure small masses. Ultrasound: Skin thickening overlying the region of erythema medial to the left breast. This tissue is hypoechoic and vascular measuring approximately 2.4 x 0.7 cm. No definite fluid collection. Typical appearance of the retroareolar tissues. Small ducts are seen. No dominant solid mass or distinct cyst. No large calcifications. IMPRESSION: Cellulitis. BI-RADS CATEGORY: 3 - PROBABLY BENIGN. RECOMMENDATIONS: FOLLOW-UP: Short interval (6-month) follow-up or continued surveillance. The region of interest should be followed on clinical grounds, and if noted to change in size or character, a targeted/directed follow-up on US examination may be performed. The FINDINGS and the FOLLOW-UP plan were reviewed in person with the patient after the examination. Written communication explaining the IMPRESSION and FOLLOW-UP will be mailed to the patient and referring care provider Electronically signed by: Magan Erickson MD 06/16/2020 4:16 PM CDT
== END ==
LOC: US 09:27
PROVIDERS: ATTEND Family Medicine
DX: N61.0 Mastitis without abscess (principal)

== ENCOUNTER → 2020-08-26 | Outpatient (CLI) | payer OTHER | LOC: YCFC.O 13:10 | PROVIDERS: ATTEND Nurse Practitioner | DX: F52.0 Hypoactive sexual desire disorder (principal); M25.579 Pain in unspecified ankle and joints of unspecified foot ==

== ENCOUNTER 2020-12-31 15:33 | Emergency (ER) | payer SELFPAY ==
--- NOTE | 2020-12-31 15:53 | ED.PDOC ---
History of Present Illness - General Time Seen by Provider: 12/31/20 15:52 Source: patient - Sore throat and cough Exam Limitations: no limitations - History of Present Illness Initial Comments: Patient complains of sore throat runny nose cough fever,, Chills and malaise since yesterday. Swallowing is painful but not difficult. She has a cough that is worse than her usual chronic cough. She denies dyspnea. Patient complains of nausea without vomiting or diarrhea. 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 Allergies/Adverse Reactions: Allergies Coconut Fatty Acids Allergy (Verified 12/31/20 15:47) Anaphylaxis Causes throat and tongue to swell Bee Venom Adverse Reaction (Verified 12/31/20 15:47) Home Medications: Ambulatory Orders Acetaminophen [Tylenol] 650 mg PO Q6H PRN #30 tab 07/23/20 Ibuprofen 600 mg PO Q6H PRN #20 tab 07/23/20 Amoxicillin & Pot Clavulanate [Augmentin Tab] 875 mg PO BID 10 Days #20 tab 12/31/20 Review of Systems - Review of Systems Constitutional: States: chills, fever, malaise EENTM: States: nose congestion, throat pain Respiratory: States: cough Cardiology: States: no symptoms reported Gastrointestinal/Abdominal: States: nausea Genitourinary: States: no symptoms reported Musculoskeletal: States: muscle pain Skin: States: no symptoms reported Neurological: States: no symptoms reported Endocrine: States: no symptoms reported Hematologic/Lymphatic: States: no symptoms reported Past Medical History (General) - Patient Medical History Hx Seizures: No Hx Stroke: No Hx Dementia: No Hx Asthma: Yes Hx of COPD: No Hx Cardiac Disorders: No Hx Congestive Heart Failure: No Hx Pacemaker: No Hx Hypertension: No Hx Thyroid Disease: No Hx Diabetes: No Hx Gastroesophageal Reflux: No Hx Renal Disease: No Hx Cancer: No Hx of HIV: No Hx Hepatitis C: No Hx MRSA: Yes MRSA Source:: Skin - Vaccination History Hx Tetanus, Diphtheria Vaccination: Yes Hx Influenza Vaccination: No Hx Pneumococcal Vaccination: No - Social History Hx Tobacco Use: Yes Hx Chewing Tobacco Use: No Hx Alcohol Use: Yes Hx Substance Use: No Hx Substance Use Treatment: No Hx Depression: Yes Hx Physical Abuse: No Hx Emotional Abuse: No Hx Suspected Abuse: No - Female History Hx Last Menstrual Period: 05/26/14 Patient : No Family Medical History - Family History Mother Family History: Unknown Living Status: Hx Family Hypertension: Yes Hx Family Stroke: Yes Hx Family Diabetes: Yes Hx Family Cancer: Yes - lung,breast-grandma Physical Exam - Physical Exam General Appearance: Alert, Comfortable Eye Exam: bilateral normal Ears, Nose, Throat: hearing grossly normal, pharyngeal erythema - Minimal, no swelling or exudate, other - Nose clear. Tympanic membranes normal bilaterally. Neck: full range of motion, supple Respiratory: chest non-tender, normal breath sounds Cardiovascular/Chest: normal peripheral pulses, regular rate, rhythm Gastrointestinal/Abdominal: normal bowel sounds, non tender, soft Back Exam: normal inspection, no CVA tenderness Extremity: normal range of motion, non-tender, no pedal edema, no calf tenderness Neurologic: monitor tech II-XII nml as tested, no motor/sensory deficits, alert, normal mood/affect, oriented x 3 Skin Exam: normal color Lymphatic: no adenopathy Progress - Progress Progress: 12/31/20 16:52Patient declined intramuscular penicillin for her strep throat. - Results/Orders Results/Orders: Rapid strep screen positive, rapid COVID-19 nasopharyngeal swab negative. Departure - Departure Clinical Impression: Strep throat Time of Disposition: 16:53 Disposition: Discharge to Home or Self Care Condition: Good Instructions: Sore Throat, Adult (DC) Referrals: Anette Alatrore FNP [Primary Care Provider] - 1-2 Weeks Prescriptions: Amoxicillin & Pot Clavulanate [Augmentin Tab] 875 mg PO BID 10 Days #20 tab Home Medications: Ambulatory Orders Acetaminophen [Tylenol] 650 mg PO Q6H PRN #30 tab 07/23/20 Ibuprofen 600 mg PO Q6H PRN #20 tab 07/23/20 Amoxicillin & Pot Clavulanate [Augmentin Tab] 875 mg PO BID 10 Days #20 tab 12/31/20 Additional Instructions: No work today And until you are free of all symptoms. Try [id number] Chloraseptic spray for your throat pain. Return if you are unable to swallow. It is still possible that you could have COVID-19 with a falsely negative test. Do not work if you are feeling ill.
[2020-12-31 15:59] VITALS: O2SAT 97
[2020-12-31] MEDS ORDERED: AMOXICILLIN & POT CLAVULANATE 875 MG TAB PO ONE (16:51)
[2020-12-31 17:09] VITALS: BP 129/81; TEMP 98.1
== END 2020-12-31 17:08 | disposition home or self-care (01) ==
LOC: ER 15:33
DX: J02.0 Streptococcal pharyngitis (principal); J45.909 Unspecified asthma, uncomplicated; F32.9 Major depressive disorder, single episode, unspecified; Z87.891 Personal history of nicotine dependence; Z20.822 Contact with and (suspected) exposure to COVID-19